=== PATIENT | female | born 1980 | race Caucasian/White ===

== ENCOUNTER 2023-01-13 15:09 | Emergency (ER) | payer BC, OTHER, SELFPAY ==
[2023-01-13 15:13] VITALS: BP 160/90; PULSE 97; RESP 18; TEMP 36.6; O2SAT 98; BMI 22.0
--- NOTE | 2023-01-13 15:22 | CT_ITS ---
The [address] [address] Patient Name: OSCAR CUBA MRN: [id number] date: 1980 Sex: F Assigned Patient Location: ER Current Patient Location: Accession/Order Number: [id number] Exam Date: 01/13/2023 15:50 Report Date: 01/13/2023 16:21 At the request of: JAY KILPATRICK Procedure: CT facial bones w con EXAM: CT facial bones w con TECHNIQUE: Axial CT images were obtained through the facial bones following intravenous contrast administration along with sagittal and coronal reformatted images. Dose reduction techniques were achieved by using automated exposure control and/or adjustment of mA and/or kV according to patient size and/or use of iterative reconstruction technique. HISTORY: facial abscess COMPARISON: CT scan 06/17/2018 FINDINGS: Fracture: None Orbits: Globes are intact. Extraocular musculature is unremarkable and symmetric. There is no retrobulbar hematoma. Soft tissues: Focal soft tissue swelling anterior to the left side of the maxilla medially without focal abscess. Sinuses: Clear. CT/CT facial bones w con IMPRESSION: Clear paranasal sinuses. Focal superficial soft tissue swelling anterior to the left side of the maxilla medially. No evidence for abscess. Electronically authenticated by: EPI GORE Date: 01/13/2023 16:21
--- NOTE | 2023-01-13 15:23 | ED.GENADUL1 ---
HPI - General Adult General Stated complaint: FACIAL SWELLING/PAIN Time Seen by Provider: 01/13/23 15:14 Source: patient Mode of arrival: walk-in Limitations: no limitations History of Present Illness HPI narrative: patient is a 42-year-old female who presents to the emergency department for two day history of pain across the maxillary sinus radiating into the mandibular jaw. She states today she noticed a sudden onset of swelling over the maxilla on the left side associated with some blurred vision in the left eye. She has no double vision or loss of vision to the eye. No significant headache. No concern for . She has not had any fevers, chills, nausea, vomiting. She has not had any specific pain to the teeth or drainage from the teeth. No medications taken prior to arrival. she has had mild nasal congestion. Related Data Home Medications Medication Instructions Recorded Confirmed clonazepam 1 mg tablet 0.75 mg PO DAILY 01/13/23 01/13/23 dextroamphetamine-amphetamine ER 10 mg PO DAILY 01/13/23 01/13/23 10 mg 24hr capsule,extend release topiramate 25 mg tablet 25 mg PO DAILY 01/13/23 01/13/23 Previous Rx's Medication Instructions Recorded amoxicillin 875 mg-potassium 1 tab PO Q12H #20 tabs 01/13/23 clavulanate 125 mg tablet methylprednisolone 4 mg tablets in See Rx Instructions .Route 01/13/23 a dose pack (Medrol (Young)) .COMPLEX #21 ea naproxen sodium 550 mg tablet 550 mg PO BID PRN pain #10 tabs 01/13/23 Allergies Allergy/AdvReac Type Severity Reaction Status Date / Time acetaminophen [From Vicodin] Allergy Mild Verified 01/13/23 15:16 hydrocodone [From Vicodin] Allergy Mild Verified 01/13/23 15:16 oxycodone [From Percocet] Allergy Mild Verified 01/13/23 15:39 Review of Systems ROS Constitutional Denies: fever or chills Eyes Reports: blurry vision Ears, nose, mouth, and throat Reports: nasal congestion; Denies: throat pain Cardiovascular Denies: chest pain Respiratory Denies: shortness of breath or cough Gastrointestinal Denies: nausea or vomiting Musculoskeletal Denies: back pain Integumentary/Breast Denies: rash Neurological Denies: headache Hematologic/Lymphatic Denies: easy bruising Exam Narrative Exam Narrative: Gen.: Awake, alert, in no distress Head: Normocephalic, atraumatic ENT: Moist mucous membranes; left tympanic membrane is clear; patient with no dental caries, no broken or root exposed teeth, no evidence of dental abscess. Tenderness and minimal edema noted over the left maxilla with no swelling of the left orbit Respiratory: No respiratory distress Extremities: Moves extremities equally Psych: Normal mood and affect Neuro: No focal neuro deficit Skin: Warm, dry, intact Constitutional Vital Signs, click to edit/add: Last Vital Signs Temp 97.9 F 01/13/23 15:13 Pulse 88 01/13/23 16:21 Resp 20 01/13/23 16:21 BP 118/85 01/13/23 16:21 Pulse Ox 100 01/13/23 16:21 O2 Del Method Room Air 01/13/23 16:21 Course Vital Signs Vital signs: Vital Signs Temperature 97.9 F 01/13/23 15:13 Pulse Rate 97 H 01/13/23 15:13 Respiratory Rate 18 01/13/23 15:13 Blood Pressure 160/90 H 01/13/23 15:13 Pulse Oximetry 98 01/13/23 15:13 Oxygen Delivery Method Room Air 01/13/23 15:13 Temperature 97.9 F 01/13/23 15:13 Pulse Rate 88 01/13/23 16:21 Respiratory Rate 20 01/13/23 16:21 Blood Pressure 118/85 01/13/23 16:21 Pulse Oximetry 100 01/13/23 16:21 Oxygen Delivery Method Room Air 01/13/23 16:21 Medical Decision Making [facility] Narrative Medical decision making narrative: patient with stable vital signs, no fevers or tachycardia. No focal finding of dental abscess in the mouth. CT of the facial bones with contrast shows the patient has an area of soft tissue swelling to the anterior left maxilla but there is no evidence of abscess. This may be sinus related versus early dental infection. Patient is treated with antibiotics, steroids and anti-inflammatories. Follow-up with PCP and return to the emergency department if symptoms change or worsen. Medical Records Medical records reviewed: Yes I reviewed the patient's medical records Imaging Data CT facial bones: Attestation: I have reviewed the pertinent imaging results. Radiologist's impression: Procedure: CT facial bones w con EXAM: CT facial bones w con TECHNIQUE: Axial CT images were obtained through the facial bones following intravenous contrast administration along with sagittal and coronal reformatted images. Dose reduction techniques were achieved by using automated exposure control and/or adjustment of mA and/or kV according to patient size and/or use of iterative reconstruction technique. HISTORY: facial abscess COMPARISON: CT scan 06/17/2018 FINDINGS: Fracture: None Orbits: Globes are intact. Extraocular musculature is unremarkable and symmetric. There is no retrobulbar hematoma. Soft tissues: Focal soft tissue swelling anterior to the left side of the maxilla medially without focal abscess. Sinuses: Clear. IMPRESSION: Clear paranasal sinuses. Focal superficial soft tissue swelling anterior to the left side of the maxilla medially. No evidence for abscess. Electronically authenticated by: EPI GORE Date: 01/13/2023 16:21 Discharge Plan Discharge Clinical Impression: Facial swelling Patient Disposition: Home, Self-Care Time of Disposition Decision: 16:26 Condition: Good Prescriptions / Home Meds: New naproxen sodium 550 mg tablet 550 mg PO BID PRN (Reason: pain) Qty: 10 0RF methylprednisolone [Medrol (Young)] 4 mg tablets,dose pack See Rx Instructions .ROUTE .COMPLEX Qty: 21 0RF Rx Instructions: Taper as directed amoxicillin-pot clavulanate 875-125 mg tablet 1 tab PO Q12H Qty: 20 0RF No Action clonazepam 1 mg tablet 0.75 mg PO DAILY topiramate 25 mg tablet 25 mg PO DAILY dextroamphetamine-amphetamine 10 mg capsule,extended release 24hr 10 mg PO DAILY Instructions: Atypical Facial Pain (ED) Stand Alone Forms: Portal Instructions Referrals: REA GRANADO [Primary Care Provider] - 1 week
--- NOTE | 2023-01-13 15:24 | PC.NURSE ---
Complains of pain to left side of face, slight swelling noted. Patient reports recent nasal congestion
[2023-01-13 16:21] VITALS: BP 118/85; PULSE 88; RESP 20; O2SAT 100
== END 2023-01-13 16:41 | disposition home or self-care (01) ==
PROVIDERS: Emergency Provider Emergency Medicine; PCP Nurse Practitioner
DX: Z79.899 Other long term (current) drug therapy (principal); R22.0 Localized swelling, mass and lump, head
CPT/HCPCS: 70487; 99285; Q9967